=== PATIENT | male | born 1965 | race Caucasian/White ===

== ENCOUNTER 2022-06-03 11:11 | Emergency (ER) | payer OTHER, MEDICAID, SELFPAY ==
[2022-06-03] VITALS (25 sets, daily range): BP systolic 127–207; BP diastolic 72–111; PULSE 52–68; RESP 14–32; TEMP 36.4; O2SAT 97–100; BMI 25.0
--- NOTE | 2022-06-03 12:04 | DI.CT.S_ITS ---
PROCEDURE: CT ANGIO ABD AORTA RUNOFF INDICATIONS: hx of DVT S/P sent with pain and cold foot TECHNIQUE: After the administration of intravenous contrast, 2.5 mm sections acquired from T12 to the feet, with optional delayed image acquisition from the knees to the feet. 3-dimensional maximum intensity projection (MIP) coronal and sagittal reformats, and/or 3-dimensional volume rendering reformatting was then performed. For radiation dose reduction, the following was used: automated exposure control. COMPARISON: None. FINDINGS: Image quality: Excellent. Extravascular tissues: Lung bases are clear. Heart size is normal. Liver is normal in size and enhancement. Gallbladder is unremarkable . Biliary system is non dilated. Pancreas enhances normally. Spleen is normal in size and enhancement. No adrenal nodules. Kidneys are normal in size and enhancement, without hydronephrosis. Simple left renal cyst is present. Non opacified bowel loops demonstrate normal wall thickness and enhancement. No free fluid or air. No retroperitoneal or mesenteric adenopathy. No ventral hernias. Bladder wall thickness is normal. No inguinal hernias or adenopathy. No suspicious bony lesions. No vertebral body compression fractures. Abdominal aorta: The aorta demonstrates minimal scattered areas of atherosclerotic calcification most prominent distally. There is no aneurysmal dilation, hemodynamically significant stenosis or dissection. Right lower extremity: The common, internal and external iliac arteries are widely patent with approximate 30% stenosis at the distal right common iliac artery. There is approximate 50% narrowing at the distal aspect of the common femoral artery. The superficial femoral artery is widely patent. Areas of short-segment stenosis less than 50% are noted within the popliteal artery. There is patency of the anterior and posterior tibial arteries. The posterior tibial artery extends to the ankle. The anterior tibial artery extends through the distal calf. The peroneal artery becomes markedly diminutive although appears patent through the distal calf. Left lower extremity: The common, internal and external iliac arteries are widely patent. There is a short segment focus of high-grade stenosis at the distal common femoral artery. There is occlusion of the distal superficial femoral artery approximately 3 cm superior to the stent graft. There is no contrast opacification of the graft throughout its course, which includes the popliteal artery. Inferior to the graft, there is appearance of thrombus in the posterior tibial trunk although the posterior tibial artery does demonstrate patency to the level of the foot. The peroneal artery is diminutive although present to the mid calf. There is narrowing at the origin of the anterior tibial artery. It does appear to be patent to the level of the ankle. IMPRESSION: Occluded distal superficial femoral stent extending to the popliteal artery with appearance of thrombus at the tibial peritoneal trunk on the left as above. The above findings were discussed with Dr. Memo Gonzalez 06/03/2022 at 3:00 p.m.. Dictated by: Radha Feldman M.D. on 06/03/2022 at 14:34 Approved by: Radha Feldman M.D. on 06/03/2022 at 15:49
--- NOTE | 2022-06-03 12:09 | ED_ITS ---
HPI - Extremity Injury (Lower) <Samson Haynes PA-C - Last Filed: 06/03/22 16:22> General Chief Complaint: Extremity Injury, Lower Stated Complaint: Hx blood clot, L knee, pain, changing color, swell Time Seen by Provider: 06/03/22 11:59 History of Present Illness HPI Narrative: This is a 56-year-old male with a history of DVT presenting to the emergency department due to left lower extremity pain onset this morning. States that he had a DVT which was either? due to my AFib or due to my smoking? last year and put on long-term Eliquis and Plavix. Patient states that he ran out of medication last week and began developing the left lower extremity pain this mo rning. States it is very painful with movement as well as at rest. Denies any chest pain shortness of breath. No injury to the left lower extremity. Patient states that he received ?a couple stents and a balloon? for treatment for the DVT last year at [facility] in [place]. Review of Systems <Samson Haynes PA-C - Last Filed: 06/03/22 16:22> Review of Systems Narrative: GENERAL: Denies chills, fatigue, malaise, fever, sweats. HEENT: Denies sinus pain, ear pain, sore throat, difficulty swallowing, dizziness. RESPIRATORY: Denies dyspnea, cough, wheezing, hemoptysis, sputum. CARDIOVASCULAR: Denies chest pain, palpitations, orthopnea, edema, GASTROINTESTINAL: Denies nausea, vomiting, abdominal pain, diarrhea, constipation, melena. : Denies dysuria, frequency, incontinence, hematuria, urinary retention. MUSCULOSKELETAL: Reports left lower extremity pain. SKIN: Denies rash, skin lesions, or other NEUROLOGIC: Denies weakness, headache, numbness, change in speech, confusion, seizures, incoordination. PSYCHIATRIC: No concerning psychosocial issues. 12 point review of systems is negative except for those stated above Exam <Samson Haynes PA-C - Last Filed: 06/03/22 16:22> Narrative Exam Narrative: GENERAL: Well-developed patient, in mild distress. HEAD: Atraumatic. Normocephalic. EYES: Pupils equal round and reactive. Extraocular motions intact. No scleral icterus. No injection or drainage. ENT: Nose without bleeding, purulent drainage. Throat without erythema, tonsillar hypertrophy or exudate. Airway patent. NECK: Trachea midline. Non tender CARDIOVASCULAR: Regular rate and rhythm without murmurs, gallops, or rubs. RESPIRATORY: Clear to auscultation. Breath sounds equal bilaterally. No wheezes, rales, or rhonchi. GASTROINTESTINAL: Abdomen soft, non-tender, nondistended. EXTREMITIES: Left lower extremity is tender to palpation to posterior calf. Left foot is cool to the touch as compared to the right. Unable to palpate posterior tibialis or dorsalis pedis pulses on exam. No appreciable swelling to left lower extremity. Patient is still able to move toes on command. Bilateral feet are similar in color. BACK: Nontender without deformity or crepitance. No flank tenderness. NEURO: AOx3. SKIN: No rash or erythema of visible areas Initial Vital Signs Initial Vital Signs: Vital Signs Temperature 97.6 F 06/03/22 11:46 Pulse Rate 63 06/03/22 11:46 Respiratory Rate 16 06/03/22 11:46 Blood Pressure 207/111 H 06/03/22 11:46 Pulse Oximetry 100 06/03/22 11:46 Oxygen Delivery Method 06/03/22 11:46 <Memo Gonzalez DO - Last Filed: 06/03/22 16:23> Initial Vital Signs Initial Vital Signs: Vital Signs Temperature 97.6 F 06/03/22 11:46 Pulse Rate 63 06/03/22 11:46 Respiratory Rate 16 06/03/22 11:46 Blood Pressure 207/111 H 06/03/22 11:46 Pulse Oximetry 100 06/03/22 11:46 Oxygen Delivery Method 06/03/22 11:46 Course <Samson Haynes PA-C - Last Filed: 06/03/22 16:22> Orders Ordered: ED Orders 06/03/22 12:04 CT angio abd aorta runoff Stat 06/03/22 12:09 Complete Blood Count AUTO DIFF Stat Comprehensive Metabolic Panel Stat Lactate (Lactic Acid) Stat Lipase Stat Partial Thromboplastin Time Stat Prothrombin Time INR Stat 06/03/22 12:11 COVID19 -Nasal RAPID/Pre-Proc Stat 06/03/22 15:30 Partial Thromboplastin Time Q6H 06/03/22 21:30 Partial Thromboplastin Time Q6H 06/04/22 03:30 Partial Thromboplastin Time Q6H 06/04/22 09:30 Partial Thromboplastin Time Q6H Sodium Chloride (Normal Saline 0.9%) 1,000 mls @ 125 mls/hr IV CONT MADI Heparin Sodium/Dextrose (Heparin Drip) 25,000 unit in 500 mls @ 30.209 mls/hr IV CONT MADI; Protocol Last Admin: 06/03/22 16:00 Dose: 18 units/kg/hr, 30.209 mls/hr Documented By: SID Discontinued Medications Heparin Sodium (Porcine) (Heparin 5,000 Unit/Ml Vial) 6,700 unit 80 unit/kg (6700 unit) IV NOW ONE Stop: 06/03/22 15:22 Last Admin: 06/03/22 15:53 Dose: 6,700 unit Documented By: SID Consultations Consultation #1: [id number]: Spoke with Dr. Victoria, Emergency Department physician at [facility] Emergency Department who who recommended speaking with the vascular team regarding transfer and admission. 1605: Received call from the transfer center who stated that the vascular team reviewed the imaging results and will accept the patient for admission via the emergency department. Vital Signs Vital signs: Vital Signs - 8 hr 06/03/22 11:46 06/03/22 12:07 06/03/22 12:09 Temperature 97.6 F Pulse Rate 63 63 Respiratory Rate 16 Blood Pressure 207/111 H 195/111 H Pulse Oximetry 100 100 Oxygen Delivery Method Room Air 06/03/22 12:09 06/03/22 12:30 06/03/22 12:31 Temperature Pulse Rate 61 58 L 59 L Respiratory Rate 21 17 14 Blood Pressure Pulse Oximetry 99 100 99 Oxygen Delivery Method Room Air 06/03/22 12:31 06/03/22 12:45 06/03/22 12:45 Temperature Pulse Rate 59 L Respiratory Rate 15 Blood Pressure 203/100 H 176/89 H Pulse Oximetry 97 Oxygen Delivery Method 06/03/22 13:00 06/03/22 13:15 06/03/22 13:15 Temperature Pulse Rate 60 55 L Respiratory Rate 24 22 Blood Pressure 160/88 H Pulse Oximetry 98 98 Oxygen Delivery Method 06/03/22 13:30 06/03/22 13:30 06/03/22 13:45 Temperature Pulse Rate 57 L Respiratory Rate 17 Blood Pressure 147/89 H 135/91 H Pulse Oximetry 98 Oxygen Delivery Method 06/03/22 13:45 06/03/22 14:00 06/03/22 14:01 Temperature Pulse Rate 54 L 54 L Respiratory Rate 18 14 Blood Pressure 132/79 Pulse Oximetry 99 99 Oxygen Delivery Method 06/03/22 14:01 06/03/22 14:15 06/03/22 14:15 Temperature Pulse Rate 54 L 54 L Respiratory Rate 18 20 Blood Pressure 139/78 Pulse Oximetry 99 98 Oxygen Delivery Method 06/03/22 14:30 06/03/22 14:30 06/03/22 14:45 Temperature Pulse Rate 54 L Respiratory Rate 15 Blood Pressure 140/76 137/77 Pulse Oximetry 99 Oxygen Delivery Method 06/03/22 14:45 06/03/22 15:00 Temperature Pulse Rate 54 L 54 L Respiratory Rate 17 16 Blood Pressure Pulse Oximetry 99 99 Oxygen Delivery Method Room Air <Memo Gonzalez, - Last Filed: 06/03/22 16:23> Orders Ordered: ED Orders 06/03/22 12:04 CT angio abd aorta runoff Stat 06/03/22 12:09 Complete Blood Count AUTO DIFF Stat Comprehensive Metabolic Panel Stat Lactate (Lactic Acid) Stat Lipase Stat Partial Thromboplastin Time Stat Prothrombin Time INR Stat 06/03/22 12:11 COVID19 -Nasal RAPID/Pre-Proc Stat 06/03/22 15:30 Partial Thromboplastin Time Q6H 06/03/22 21:30 Partial Thromboplastin Time Q6H 06/04/22 03:30 Partial Thromboplastin Time Q6H 06/04/22 09:30 Partial Thromboplastin Time Q6H Sodium Chloride (Normal Saline 0.9%) 1,000 mls @ 125 mls/hr IV CONT MADI Heparin Sodium/Dextrose (Heparin Drip) 25,000 unit in 500 mls @ 30.209 mls/hr IV CONT MADI; Protocol Last Admin: 06/03/22 16:00 Dose: 18 units/kg/hr, 30.209 mls/hr Documented By: SID Discontinued Medications Heparin Sodium (Porcine) (Heparin 5,000 Unit/Ml Vial) 6,700 unit 80 unit/kg (6700 unit) IV NOW ONE Stop: 06/03/22 15:22 Last Admin: 06/03/22 15:53 Dose: 6,700 unit Documented By: SID Vital Signs Vital signs: Vital Signs - 8 hr 06/03/22 11:46 06/03/22 12:07 06/03/22 12:09 Temperature 97.6 F Pulse Rate 63 63 Respiratory Rate 16 Blood Pressure 207/111 H 195/111 H Pulse Oximetry 100 100 Oxygen Delivery Method Room Air 06/03/22 12:09 06/03/22 12:30 06/03/22 12:31 Temperature Pulse Rate 61 58 L 59 L Respiratory Rate 21 17 14 Blood Pressure Pulse Oximetry 99 100 99 Oxygen Delivery Method Room Air 06/03/22 12:31 06/03/22 12:45 06/03/22 12:45 Temperature Pulse Rate 59 L Respiratory Rate 15 Blood Pressure 203/100 H 176/89 H Pulse Oximetry 97 Oxygen Delivery Method 06/03/22 13:00 06/03/22 13:15 06/03/22 13:15 Temperature Pulse Rate 60 55 L Respiratory Rate 24 22 Blood Pressure 160/88 H Pulse Oximetry 98 98 Oxygen Delivery Method 06/03/22 13:30 06/03/22 13:30 06/03/22 13:45 Temperature Pulse Rate 57 L Respiratory Rate 17 Blood Pressure 147/89 H 135/91 H Pulse Oximetry 98 Oxygen Delivery Method 06/03/22 13:45 06/03/22 14:00 06/03/22 14:01 Temperature Pulse Rate 54 L 54 L Respiratory Rate 18 14 Blood Pressure 132/79 Pulse Oximetry 99 99 Oxygen Delivery Method 06/03/22 14:01 06/03/22 14:15 06/03/22 14:15 Temperature Pulse Rate 54 L 54 L Respiratory Rate 18 20 Blood Pressure 139/78 Pulse Oximetry 99 98 Oxygen Delivery Method 06/03/22 14:30 06/03/22 14:30 06/03/22 14:45 Temperature Pulse Rate 54 L Respiratory Rate 15 Blood Pressure 140/76 137/77 Pulse Oximetry 99 Oxygen Delivery Method 06/03/22 14:45 06/03/22 15:00 Temperature Pulse Rate 54 L 54 L Respiratory Rate 17 16 Blood Pressure Pulse Oximetry 99 99 Oxygen Delivery Method Room Air MDM - Extremity Injury (Lower) <Samson Haynes PA-C - Last Filed: 06/03/22 16:22> Lab Data Result diagrams: 06/03/22 12:09 06/03/22 12:09 Labs: Lab Results 09/19/22 09/19/22 09/19/22 Range/Units 12:09 12:09 12:09 WBC 7.5 (4.5-11.0) X10^3/uL RBC 5.13 (4.5-5.9) X10^6/uL Hgb 16.9 (13.5-17.5) g/dL Hct 48.9 (41-53) % MCV 95.2 (80-100) fL MCH 33.0 (26-34) PG MCHC 34.7 (30-36) % RDW 14.1 (11.6-14.8) % Plt Count 221 (150-400) X10^3/uL Neut % (Auto) 66.0 (50-75) % Lymph % (Auto) 22.7 L (25-40) % Bowie % (Auto) 8.2 (3-14) % Eos % (Auto) 2.0 (2-4) % Baso % (Auto) 1.1 (0-2) % Neut # (Auto) 4900 (5330-9954) /uL Lymph # (Auto) 1700 (9508-6390) /uL Bowie # (Auto) 600 (0-900) /uL Eos # (Auto) 200 (0-450) /uL Baso # (Auto) 100 (0-100) /uL PT 12.8 H (10.1-12.7) SECONDS INR 1.1 (0.9-1.3) APTT 33 (26-36) SECONDS Sodium 139 (137-145) mmol/L Potassium 3.9 (3.4-5.1) mmol/L Chloride 102 (98-107) mmol/L Carbon Dioxide 25 (22-32) mmol/L BUN 13 (9-20) mg/dL Creatinine 0.98 (0.66-1.25) mg/dL Estimated GFR > 60 (>60) mL/min BUN/Creatinine Ratio 13.3 (6-22) Glucose 134 H (70-100) mg/dL Lactate (0.7-2.1) mmol/L Calcium 9.6 (8.4-10.2) mg/dL Total Bilirubin 0.5 (0.2-1.3) mg/dL AST 47 (17-59) IU/L ALT 36 (<50) IU/L Alkaline Phosphatase 81 (38-126) U/L Total Protein 7.7 (6.3-8.2) g/dL Albumin 4.5 (3.5-5.0) g/dL Globulin 3.2 (1.7-4.1) g/dL Albumin/Globulin Ratio 1.4 (1.0-2.8) Lipase 44 (23-300) U/L SARS-CoV-2 (PCR) (Negative) 06/03/22 06/03/22 Range/Units 12:09 12:11 WBC (4.5-11.0) X10^3/uL RBC (4.5-5.9) X10^6/uL Hgb (13.5-17.5) g/dL Hct (41-53) % MCV (80-100) fL MCH (26-34) PG MCHC (30-36) % RDW (11.6-14.8) % Plt Count (150-400) X10^3/uL Neut % (Auto) (50-75) % Lymph % (Auto) (25-40) % Bowie % (Auto) (3-14) % Eos % (Auto) (2-4) % Baso % (Auto) (0-2) % Neut # (Auto) (1423-4340) /uL Lymph # (Auto) (0442-1786) /uL Bowie # (Auto) (0-900) /uL Eos # (Auto) (0-450) /uL Baso # (Auto) (0-100) /uL PT (10.1-12.7) SECONDS INR (0.9-1.3) APTT (26-36) SECONDS Sodium (137-145) mmol/L Potassium (3.4-5.1) mmol/L Chloride (98-107) mmol/L Carbon Dioxide (22-32) mmol/L BUN (9-20) mg/dL Creatinine (0.66-1.25) mg/dL Estimated GFR (>60) mL/min BUN/Creatinine Ratio (6-22) Glucose (70-100) mg/dL Lactate 1.7 (0.7-2.1) mmol/L Calcium (8.4-10.2) mg/dL Total Bilirubin (0.2-1.3) mg/dL AST (17-59) IU/L ALT (<50) IU/L Alkaline Phosphatase (38-126) U/L Total Protein (6.3-8.2) g/dL Albumin (3.5-5.0) g/dL Globulin (1.7-4.1) g/dL Albumin/Globulin Ratio (1.0-2.8) Lipase (23-300) U/L SARS-CoV-2 (PCR) Negative (Negative) Imaging Data CT scan - abdomen/pelvis: Radiologist's Impression: [address] [address] [address] Scan Report Signed Patient: Sree Hensley MR#: [id number] : 1965 Acct:[id number] Age/Sex: 56 / M Date of Service: 06/03/22 Loc: ED Accession Number: [id number] ?? Procedure: CT angio abd aorta runoff Ordering Provider: Memo Goznalez D.O. PROCEDURE:? CT ANGIO ABD AORTA RUNOFF ? INDICATIONS:? hx of DVT S/P sent with pain and cold foot ? TECHNIQUE:? After the administration of intravenous contrast, 2.5 mm sections acquired from T12 to the feet, with optional delayed image acquisition from the knees to the feet.? 3-dimensional maximum intensity projection (MIP) coronal and sagittal reformats, and/or 3-dimensional volume rendering reformatting was then performed.? For radiation dose reduction, the following was used:? automated exposure control.? ? COMPARISON:? None. ? FINDINGS:? Image quality:? Excellent.? ? Extravascular tissues:? Lung bases are clear.? Heart size is normal.? Liver is normal in size and enhancement.? Gallbladder is unremarkable .? Biliary system is non dilated.? Pancreas enhances normally.? Spleen is normal in size and enhancement.? No adrenal nodules.? Kidneys are normal in size and enhancement, without hydronephrosis.? Simple left renal cyst is present.? Non opacified bowel loops demonstrate normal wall thickness and enhancement.? No free fluid or air.? No retroperitoneal or mesenteric adenopathy.? No ventral hernias.? Bladder wall thickness is normal.? No inguinal hernias or adenopathy.? No suspicious bony lesions.? No vertebral body compression fractures.? ? Abdominal aorta:? The aorta demonstrates minimal scattered areas of atherosclerotic calcification most prominent distally.? There is no aneurysmal dilation, hemodynamically significant stenosis or dissection. ? Right lower extremity:? The common, internal and external iliac arteries are widely patent with approximate 30% stenosis at the distal right common iliac artery.? There is approximate 50% narrowing at the distal aspect of the common femoral artery.? The superficial femoral artery is widely patent.? Areas of short-segment stenosis less than 50% are noted within the popliteal artery.? There is patency of the anterior and posterior tibial arteries.? The posterior tibial artery extends to the ankle.? The anterior tibial artery extends through the distal calf.? The peroneal artery becomes markedly diminutive although appears patent through the distal calf. ? Left lower extremity:? The common, internal and external iliac arteries are widely patent.? There is a short segment focus of high-grade stenosis at the distal common femoral artery.? There is occlusion of the distal superficial femoral artery approximately 3 cm superior to the stent graft.? There is no contrast opacification of the graft throughout its course, which includes the popliteal artery.? Inferior to the graft, there is appearance of thrombus in the posterior tibial trunk although the posterior tibial artery does demonstrate patency to the level of the foot.? The peroneal artery is diminutive although present to the mid calf.? There is narrowing at the origin of the anterior tibial artery.? It does appear to be patent to the level of the ankle. ? IMPRESSION:? ? Occluded distal superficial femoral stent extending to the popliteal artery with appearance of thrombus at the tibial peritoneal trunk on the left as above. ? ? The above findings were discussed with Dr. Memo Gonzalez 06/03/2022 at 3:00 p.m..? ? Dictated by: Radha Feldman M.D. on 06/03/2022 at 14:34 ? ? Approved by: Radha Feldman M.D. on 06/03/2022 at 15:49 ? MDM Narrative Medical decision making narrative: This is a 56-year-old male presents to the emergency department due to 1 day of acute left lower extremity pain. Patient states that he had a DVT secondary to his chronic AFib last year and was seen in the [place]'s vascular team and saw him for stent placement as well as ?balloon placement?. Patient states that he ran out of his anticoagulation medications, Plavix and Eliquis, roughly a week ago and has not taken any anticoagulation since. CTA was ordered at approximately 12:04 p.m although there was noted to be a delay in imaging read. Radiology eventually called my attending physician, Dr. Gonzalez at approximately 3:40 pm to discuss the results. CTA report states Occluded distal superficial femoral stent extending to the popliteal artery with appearance of thrombus at the tibial peritoneal trunk on the left as above.Once imaging results were available patient was started on heparin given a bolus as well as IV drip. These results were then discussed with [facility] ED physician, Dr. Victoria, who advised us to speak with the vascular team before potential transfer. The imaging results were faxed over and vascular called the transfer center to accept the transfer after reviewing the imaging. Much appreciated. Throughout the course in the encounter the patient is vitals were stable other than elevated blood pressure, although otherwise asymptomatic, which decreased throughout the course of the encounter. <Memo Gonzalez, DO - Last Filed: 06/03/22 16:23> Lab Data Labs: Lab Results 06/03/22 06/03/22 06/03/22 Range/Units 12:09 12:09 12:09 WBC 7.5 (4.5-11.0) X10^3/uL RBC 5.13 (4.5-5.9) X10^6/uL Hgb 16.9 (13.5-17.5) g/dL Hct 48.9 (41-53) % MCV 95.2 (80-100) fL MCH 33.0 (26-34) PG MCHC 34.7 (30-36) % RDW 14.1 (11.6-14.8) % Plt Count 221 (150-400) X10^3/uL Neut % (Auto) 66.0 (50-75) % Lymph % (Auto) 22.7 L (25-40) % Bowie % (Auto) 8.2 (3-14) % Eos % (Auto) 2.0 (2-4) % Baso % (Auto) 1.1 (0-2) % Neut # (Auto) 4900 (8778-3689) /uL Lymph # (Auto) 1700 (5266-9950) /uL Bowie # (Auto) 600 (0-900) /uL Eos # (Auto) 200 (0-450) /uL Baso # (Auto) 100 (0-100) /uL PT 12.8 H (10.1-12.7) SECONDS INR 1.1 (0.9-1.3) APTT 33 (26-36) SECONDS Sodium 139 (137-145) mmol/L Potassium 3.9 (3.4-5.1) mmol/L Chloride 102 (98-107) mmol/L Carbon Dioxide 25 (22-32) mmol/L BUN 13 (9-20) mg/dL Creatinine 0.98 (0.66-1.25) mg/dL Estimated GFR > 60 (>60) mL/min BUN/Creatinine Ratio 13.3 (6-22) Glucose 134 H (70-100) mg/dL Lactate (0.7-2.1) mmol/L Calcium 9.6 (8.4-10.2) mg/dL Total Bilirubin 0.5 (0.2-1.3) mg/dL AST 47 (17-59) IU/L ALT 36 (<50) IU/L Alkaline Phosphatase 81 (38-126) U/L Total Protein 7.7 (6.3-8.2) g/dL Albumin 4.5 (3.5-5.0) g/dL Globulin 3.2 (1.7-4.1) g/dL Albumin/Globulin Ratio 1.4 (1.0-2.8) Lipase 44 (23-300) U/L SARS-CoV-2 (PCR) (Negative) 06/03/22 06/03/22 Range/Units 12:09 12:11 WBC (4.5-11.0) X10^3/uL RBC (4.5-5.9) X10^6/uL Hgb (13.5-17.5) g/dL Hct (41-53) % MCV (80-100) fL MCH (26-34) PG MCHC (30-36) % RDW (11.6-14.8) % Plt Count (150-400) X10^3/uL Neut % (Auto) (50-75) % Lymph % (Auto) (25-40) % Bowie % (Auto) (3-14) % Eos % (Auto) (2-4) % Baso % (Auto) (0-2) % Neut # (Auto) (3268-7867) /uL Lymph # (Auto) (0275-1925) /uL Bowie # (Auto) (0-900) /uL Eos # (Auto) (0-450) /uL Baso # (Auto) (0-100) /uL PT (10.1-12.7) SECONDS INR (0.9-1.3) APTT (26-36) SECONDS Sodium (137-145) mmol/L Potassium (3.4-5.1) mmol/L Chloride (98-107) mmol/L Carbon Dioxide (22-32) mmol/L BUN (9-20) mg/dL Creatinine (0.66-1.25) mg/dL Estimated GFR (>60) mL/min BUN/Creatinine Ratio (6-22) Glucose (70-100) mg/dL Lactate 1.7 (0.7-2.1) mmol/L Calcium (8.4-10.2) mg/dL Total Bilirubin (0.2-1.3) mg/dL AST (17-59) IU/L ALT (<50) IU/L Alkaline Phosphatase (38-126) U/L Total Protein (6.3-8.2) g/dL Albumin (3.5-5.0) g/dL Globulin (1.7-4.1) g/dL Albumin/Globulin Ratio (1.0-2.8) Lipase (23-300) U/L SARS-CoV-2 (PCR) Negative (Negative) Discharge Plan Departure Patient Disposition: [facility] Clinical Impression: Ischemic leg Activity Restrictions/Additional Instructions: Thank you for coming to the [facility] Emergency Department today. I hope your visit at [facility] in [place] goes well. <Memo Gonzalez DO - Last Filed: 06/03/22 16:23> [facility] ED Attending Inocencia Attestation: I have been involved in the patient's care. Agree with the documentation as above.
[2022-06-03 12:28] LABS: Add Manual Diff / Slide Review NO; Basophils Absolute Auto 100 /uL (0-100); Basophils Percent Auto 1.1 % (0-2); Eosinophils Absolute Auto 200 /uL (0-450); Hematocrit 48.9 % (41-53); Hemoglobin 16.9 g/dL (13.5-17.5); Lymphocytes Absolute Auto 1700 /uL (1100-4500); Lymphocytes Percent Auto 22.7 % (25-40); Mean Corpuscular HGB Conc 34.7 % (30-36); Mean Corpuscular Volume 95.2 fL (80-100); Monocytes Absolute Auto 600 /uL (0-900); Monocytes Percent Auto 8.2 % (3-14); Neutrophils Absolute Auto 4900 /uL (1500-7000); Platelet Count 221 X10^3/uL (150-400); Red Blood Cell Count 5.13 X10^6/uL (4.5-5.9); Red Cell Distribution Width 14.1 % (11.6-14.8); White Blood Cell Count 7.5 X10^3/uL (4.5-11.0)
[2022-06-03 12:33] LABS: INR 1.1 (0.9-1.3); Prothrombin Time 12.8 SECONDS (10.1-12.7)
[2022-06-03 12:35] LABS: PTT Partial Thromboplastin Tim 33 SECONDS (26-36)
[2022-06-03 12:39] LABS: Lactate (Lactic Acid) 1.7 mmol/L (0.7-2.1)
[2022-06-03 12:40] LABS: Alanine Aminotransferase 36 IU/L (<50); Albumin 4.5 g/dL (3.5-5.0); Albumin Globulin Ratio 1.4 (1.0-2.8); Alkaline Phosphatase 81 U/L (38-126); Aspartate Aminotransferase 47 IU/L (17-59); BUN Creatinine Ratio 13.3 (6-22); Bilirubin Total 0.5 mg/dL (0.2-1.3); Blood Urea Nitrogen 13 mg/dL (9-20); Calcium 9.6 mg/dL (8.4-10.2); Carbon Dioxide 25 mmol/L (22-32); Chloride 102 mmol/L (98-107); Estimated Glomerular Filt Rate > 60 mL/min (>60); Globulin 3.2 g/dL (1.7-4.1); Glucose 134 mg/dL (70-100); HEMOLYSIS < 15 (0-50); Lipase 44 U/L (23-300); Potassium 3.9 mmol/L (3.4-5.1); Sodium 139 mmol/L (137-145); Total Protein 7.7 g/dL (6.3-8.2)
[2022-06-03 12:56] LABS: COVID19 -Nasal RAPID Negative (Negative)
[2022-06-03] MEDS: HEPARIN 5,000 UNIT/ML VIAL 6700 UNIT IV (15:53)
[2022-06-03] MEDS: HEPARIN DRIP 25,000 UNIT/500 ML IV.SOLN 30.209 UNIT IV (16:00)
--- NOTE | 2022-06-03 16:10 | PC.NURSE ---
i used the doppler to try and get posterior tibial pulse and dorsalis pedis pulse. I was able to doppler the posterior tibial pulse but not the dorsalis pedis i couldnt not hear. provider SCOTT lyle aware. patient reports that his foot feels better and CMS still intact.
--- NOTE | 2022-06-03 17:09 | PC.NURSE ---
patient transferred to [facility] via [facility] with Heparin infusing at 30.2mls/hr.
== END 2022-06-03 17:05 | disposition short-term general hospital (02) ==
PROVIDERS: Emergency Medicine; Emergency Provider Physician Assistant Medical
DX: I99.8 Other disorder of circulatory system (principal); I48.20 Chronic atrial fibrillation, unspecified; Z79.01 Long term (current) use of anticoagulants; Z20.822 Contact with and (suspected) exposure to COVID-19
CPT/HCPCS: 36415; 75635; 80053; 83605; 83690; 85025; 85610; 85730; 87635; 96365; 96375; 99284; C9803; J1644; Q9967